=== PATIENT | male | born 1980 | race Caucasian/White ===

== ENCOUNTER 2018-06-16 20:02 | Emergency (ER) | payer OTHER ==
[2018-06-16 20:10] VITALS: BP 132/83; PULSE 100; TEMP 98.1; BMI 34.0
--- NOTE | 2018-06-16 20:12 | PDOC ---
Rapid Medical Evaluation Chief Complaint: Pain, Acute Time Seen by Provider: 06/16/18 20:07 Medical Evaluation: 06/16/18 20:09 38 year old male with c/o right testicular pain with b/l lower back radiating to the groin, PE: patient alert ox3 A: testicluar pain; abdominal pain P: ua, ucx , gc US patient to the ER for further management of care. Discharge Disposition - Diagnosis Testicular pain, right Abdominal pain Qualifiers: Abdominal location: lower abdomen, unspecified Qualified Code(s): R10.30 - Lower abdominal pain, unspecified - Referrals - Patient Instructions - Post Discharge Activity
--- NOTE | 2018-06-16 21:21 | PDOC ---
History of Present Illness - General History Source: Patient Exam Limitations: No Limitations - History of Present Illness Initial Comments: 06/16/18 22:15 The patient is a 38 year old male with a significant past medical history of kidney stones who presents to the emergency department with lower back pain for 1 week. The patient reports some associated abdominal pain, urinary frequency, fever and chills (last episode of chills this afternoon). He also reports episode of headache. And runny nose. He denies any sick contact, recent travel, cough. He reports taking advil for pain. He denies any other symptoms or complaints. <Rian Beyer - Last Filed: 06/17/18 00:20> <Crow Osorio - Last Filed: 06/17/18 01:25> - General Chief Complaint: Pain Stated Complaint: LOWER BACK PAIN Time Seen by Provider: 06/16/18 20:07 Past History <Rian Beyer - Last Filed: 06/17/18 00:20> - Past Medical History COPD: No - Suicide/Smoking/Psychosocial Hx Smoking History: Current every day smoker Have you smoked in the past 12 months: Yes Number of Cigarettes Smoked Daily: 10 Information on smoking cessation initiated: No Hx Alcohol Use: No Drug/Substance Use Hx: Yes <Crow Osorio - Last Filed: 06/17/18 01:25> - Past Medical History Allergies/Adverse Reactions: Allergies Allergy/AdvReac Type Severity Reaction Status Date / Time shellfish derived Allergy Severe Swelling Verified 06/16/18 20:10 No Known Drug Allergies Allergy Verified 06/16/18 21:22 Home Medications: Ambulatory Orders Ciprofloxacin [Cipro (Restricted To Id)] 500 mg PO BID #14 tablet 06/17/18 metroNIDAZOLE [Flagyl -] 500 mg PO DAILY #21 tablet 06/17/18 Review of Systems - Review of Systems Able to Perform ROS?: Yes Comments:: 06/16/18 22:15 CONSTITUTIONAL:(+)fever, chills. No fatigue EYES: No visual changes ENT: No ear pain, no sore throat CARDIOVASCULAR: No chest pain, no palpitations RESPIRATORY: No cough, no SOB GI: No abdominal pain, no nausea, no vomiting, no constipation, no diarrhea GENITOURINARY:(+)frequency. No dysuria, no hematuria MUSKULOSKELETAL:(+)lower back pain. no joint pain, no myalgias SKIN: No rash NEURO:(+) headache <Rian Beyer - Last Filed: 06/17/18 00:20> *Physical Exam - Vital Signs Last Vital Signs Temp Pulse Resp BP Pulse Ox 98.1 F 100 H 17 132/83 100 06/16/18 20:08 06/16/18 20:08 06/16/18 20:08 06/16/18 20:08 06/16/18 22:05 - Physical Exam Comments: 06/16/18 22:15 CONSTITUTIONAL: Well-appearing; well-nourished; in no apparent distress HEAD: Normocephalic; atraumatic EYES: PERRL; EOM intact ENMT: External appears normal; normal oropharynx NECK: Supple; non-tender; no cervical lymphadenopathy CARD: Normal S1, S2; no murmurs, rubs, or gallops RESP: Normal chest excursion with respiration; breath sounds clear and equal bilaterally; no wheezes, rhonchi, or rales ABD: (+)mild LLQ and right flank pain. Soft, non-distended; no palpable organomegaly, no palpable hernias EXT: Normal ROM in all four extremities; non-tender to palpation; distal pulses intact SKIN: Warm, dry, no rash NEURO: No focal neurological deficiencies. <Rian Beyer - Last Filed: 06/17/18 00:20> - Vital Signs Last Vital Signs Temp Pulse Resp BP Pulse Ox 98.1 F 100 H 17 132/83 100 06/16/18 20:08 06/16/18 20:08 06/16/18 20:08 06/16/18 20:08 06/16/18 20:08 <Crow Osorio - Last Filed: 06/17/18 01:25> Moderate Sedation - Procedure Monitoring Vital Signs: Procedure Monitoring Vital Signs Temperature 98.1 F 06/16/18 20:08 Pulse Rate 100 H 06/16/18 20:08 Respiratory Rate 17 06/16/18 20:08 Blood Pressure 132/83 06/16/18 20:08 O2 Sat by Pulse Oximetry (%) 100 06/16/18 22:05 <Rian Beyer - Last Filed: 06/17/18 00:20> - Procedure Monitoring Vital Signs: Procedure Monitoring Vital Signs Temperature 98.1 F 06/16/18 20:08 Pulse Rate 100 H 06/16/18 20:08 Respiratory Rate 17 06/16/18 20:08 Blood Pressure 132/83 06/16/18 20:08 O2 Sat by Pulse Oximetry (%) 100 06/16/18 20:08 <Crow Osorio - Last Filed: 06/17/18 01:25> ED Treatment Course - LABORATORY CBC & Chemistry Diagram: 06/17/18 00:05 06/17/18 00:05 <Rian Beyer - Last Filed: 06/17/18 00:20> - LABORATORY CBC & Chemistry Diagram: 06/17/18 00:05 06/17/18 00:05 <Crow Osorio - Last Filed: 06/17/18 01:25> Medical Decision Making - Medical Decision Making 06/17/18 01:21 Patient is well-appearing 38-year-old male who presents to the ER with atraumatic low back pain, mild to moderate left lower quadrant and right-sided flank pain. CBC/CMP are within normal limit. CT of abdomen and pelvis shows bilateral renal cysts, nonobstructing right renal stone and thickening of the left sigmoid, Consistent with colitis/diverticulitis. Patient's afebrile and hemodynamically stable. Will treat for clinical diverticulitis with by mouth Cipro and Flagyl with outpatient follow-up. <Crow Osorio - Last Filed: 06/17/18 01:25> *DC/Admit/Observation/Transfer - Attestations Scribe Attestion: 06/16/18 22:15 Documentation prepared by Rian Beyer, acting as medical pathology teacher for Crow Osorio MD. <Rian Beyer - Last Filed: 06/17/18 00:20> - Attestations Physician Attestion: 06/16/18 22:12 The documentation was prepared by the scribe under my direct supervision. I have reviewed the documentation which correctly represents the findings, medical decision-making and critical action taken by me. <Crow Osorio - Last Filed: 06/17/18 01:25> Diagnosis at time of Disposition: Colitis Abdominal pain Qualifiers: Abdominal location: lower abdomen, unspecified Qualified Code(s): R10.30 - Lower abdominal pain, unspecified - Discharge Dispostion Disposition: HOME Condition at time of disposition: Stable - Referrals Referrals: Carlita Nash MD [Primary Care Provider] - - Patient Instructions Printed Discharge Instructions: DI for Abdominal Pain-Adult, DI for Colitis - Post Discharge Activity
[2018-06-16 22:25] LABS: URINE APPEARANCE CLEAR; URINE BILIRUBIN NEGATIVE (<2.0 mg/dL); URINE COLOR YELLOW; URINE GLUCOSE (UA) NEGATIVE (NEGATIVE); URINE KETONE NEGATIVE (NEGATIVE); URINE LEUK ESTERASE NEGATIVE (NEGATIVE); URINE NITRITE NEGATIVE (NEGATIVE); URINE PROTEIN NEGATIVE (NEGATIVE); URINE UROBILINOGEN NEGATIVE mg/dL (0.2-1.0)
[2018-06-16 22:34] LABS: EPI CELLS RARE /HPF (FEW); URINE MUCUS RARE
[2018-06-17 00:22] LABS: BASO % 1.2 % (0-2.0); EOS % 1.4 % (0-4.5); HEMATOCRIT 46.1 % (35.4-49); HEMOGLOBIN 16.2 GM/dL (11.7-16.9); LYMPH % 34.5 % (8-40); MCH 32.2 pg (25.7-33.7); MCHC 35.3 g/dl (32.0-35.9); MEAN CELL VOLUME 91.4 fl (80-96); MEAN PLT VOLUME 7.9 fl (7.5-11.1); MONO % 6.9 % (3.8-10.2); PLATELET COUNT 292 K/MM3 (134-434); RBC 5.04 M/mm3 (4.00-5.60); RDW 12.6 % (11.9-15.9); WHITE BLOOD COUNT 9.7 K/mm3 (4.0-10.0)
[2018-06-17 01:01] LABS: ALBUMIN 3.6 g/dl (3.4-5.0); ALK PHOS 68 U/L (45-117); ANION GAP 4 MMOL/L (8-16); BILIRUBIN,TOTAL 0.4 mg/dL (0.2-1); BLOOD UREA NITROGEN 20 mg/dL (7-18); CALCIUM 8.4 mg/dL (8.5-10.1); CHLORIDE 106 mmol/L (98-107); CO2 28 mmol/L (21-32); CREATININE 1.2 mg/dL (0.55-1.3); GLUCOSE,RANDOM 84 mg/dL (74-106); POTASSIUM 4.2 mmol/L (3.5-5.1); SGOT/AST 20 U/L (15-37); SGPT/ALT 34 U/L (13-61); SODIUM 138 mmol/L (136-145); TOT PROT 6.4 g/dl (6.4-8.2)
[2018-06-17] MEDS ORDERED: CIPROFLOXACIN 500 MG TABLET (RESTRICTED TO ID) PO ONE (01:20)
[2018-06-17] MEDS ORDERED: metroNIDAZOLE 500 MG TABLET PO ONE (01:20)
[2018-06-17] MEDS ORDERED: metroNIDAZOLE 250 MG TABLET ONE (01:21)
== END 2018-06-17 01:50 | disposition home or self-care (01) ==
LOC: JER 20:02
DX: R10.30 Lower abdominal pain, unspecified (principal); F17.210 Nicotine dependence, cigarettes, uncomplicated
CPT/HCPCS: 36415; 74176-TC; 76870-TC; 80053; 81003; 81015; 85025; 87086; 87491; 87591; 99284-25

== ENCOUNTER 2020-09-18 15:42 | Emergency (ER) | payer OTHER ==
[2020-09-18 15:53] VITALS: BP 143/80; PULSE 106; TEMP 98.2; BMI 38.0
[2020-09-18] MEDS ORDERED: DIPHTH,PERTUSS(ACELL),TET 0.5 ML DISP.SYRIN IM ONE ×2 (16:25→16:39)
== END 2020-09-18 17:13 | disposition home or self-care (01) ==
LOC: JER 15:42
PROC: 0HQGXZZ Repair Left Hand Skin, External Approach (ICD-10-PCS; principal; 2020-09-18)
PROC: 3E0234Z Introduction of Serum, Toxoid and Vaccine into Muscle, Percutaneous Approach (ICD-10-PCS; 2020-09-18)
DX: S61.012A Laceration without foreign body of left thumb without damage to nail, initial encounter (principal)
CPT/HCPCS: 90471; 90715; 99284-25

== ENCOUNTER 2020-09-25 08:58 | Emergency (ER) | payer OTHER ==
[2020-09-25 09:07] VITALS: BP 124/81; PULSE 86; TEMP 98.1; BMI 36.9
== END 2020-09-25 09:32 | disposition home or self-care (01) ==
LOC: JER 08:58
DX: Z48.02 Encounter for removal of sutures (principal)
CPT/HCPCS: 99281-25

== ENCOUNTER 2021-05-23 14:38 | Emergency (ER) | payer OTHER ==
[2021-05-23 14:54] VITALS: BP 131/82; PULSE 101; TEMP 97.9; BMI 39.9
== END 2021-05-23 16:31 | disposition left against medical advice (07) ==
LOC: JER 14:38
DX: H53.8 Other visual disturbances (principal)
CPT/HCPCS: 99283-25; 99284-25